=== PATIENT | male | born 1960 | race Two or more races ===

== ENCOUNTER 2020-10-20 17:49 | Inpatient (IN) | payer OTHER ==
[2020-10-20 19:09] LABS: BASO % 0.7 % (0-2.0); EOS % 2.5 % (0-4.5); HEMATOCRIT 40.6 % (35.4-49); HEMOGLOBIN 13.6 GM/dL (11.7-16.9); LYMPH % 23.9 % (8-40); MCH 27.8 pg (25.7-33.7); MCHC 33.4 g/dl (32.0-35.9); MEAN CELL VOLUME 83.3 fl (80-96); MEAN PLT VOLUME 8.5 fl (7.5-11.1); MONO % 9.3 % (3.8-10.2); NEUT % 63.6 % (42.8-82.8); PLATELET COUNT 146 10^3/uL (134-434); RBC 4.88 M/mm3 (4.00-5.60); RDW 14.3 % (11.9-15.9); WHITE BLOOD COUNT 7.5 K/mm3 (4.0-10.0)
[2020-10-20 19:32] LABS: ALBUMIN 3.3 g/dl (3.4-5.0); BLOOD UREA NITROGEN 24.8 mg/dL (7-18)
[2020-10-20 19:35] LABS: CREATININE 0.9 mg/dL (0.55-1.3)
[2020-10-20 19:37] LABS: BILIRUBIN,TOTAL 0.7 mg/dL (0.2-1); TOT PROT 7.6 g/dl (6.4-8.2)
[2020-10-20 20:31] LABS: CALCIUM 9.3 mg/dL (8.5-10.1)
[2020-10-20 20:32] LABS: ALBUMIN 3.4 g/dl (3.4-5.0); BLOOD UREA NITROGEN 25.2 mg/dL (7-18)
[2020-10-20 20:35] LABS: CREATININE 0.9 mg/dL (0.55-1.3)
[2020-10-20 20:37] LABS: BILIRUBIN,TOTAL 0.7 mg/dL (0.2-1); TOT PROT 7.4 g/dl (6.4-8.2)
[2020-10-20] MEDS ORDERED: DEXTROSE 5%-0.45% SALINE 1,000 ML IV SCH (20:45)
[2020-10-21 08:14] LABS: ALBUMIN 3.1 g/dl (3.4-5.0); BASO % 0.8 % (0-2.0); BLOOD UREA NITROGEN 19.8 mg/dL (7-18); CALCIUM 8.7 mg/dL (8.5-10.1); EOS % 4.6 % (0-4.5); HEMATOCRIT 44.3 % (35.4-49); HEMOGLOBIN 14.2 GM/dL (11.7-16.9); LYMPH % 36.9 % (8-40); MCH 27.1 pg (25.7-33.7); MEAN CELL VOLUME 84.8 fl (80-96); MEAN PLT VOLUME 9.3 fl (7.5-11.1); MONO % 6.9 % (3.8-10.2); NEUT % 50.8 % (42.8-82.8); PLATELET COUNT 153 10^3/uL (134-434); RBC 5.23 M/mm3 (4.00-5.60); RDW 14.4 % (11.9-15.9); WHITE BLOOD COUNT 5.4 K/mm3 (4.0-10.0)
[2020-10-21 08:18] LABS: CREATININE 0.7 mg/dL (0.55-1.3)
[2020-10-21 08:19] LABS: BILIRUBIN,TOTAL 0.9 mg/dL (0.2-1); TOT PROT 7.2 g/dl (6.4-8.2)
[2020-10-21 08:53] LABS: EPI CELLS 11 /uL (0-25.1); HYALINE CASTS 1 /uL (0-3.1); PH,URINE 6.5 (5.0-8.0); URINE APPEARANCE CLEAR; URINE BACTERIA 116 /uL (0-1359); URINE BILIRUBIN NEGATIVE (NEGATIVE); URINE COLOR DK YELLOW; URINE GLUCOSE (UA) NEGATIVE (NEGATIVE); URINE KETONE NEGATIVE (NEGATIVE); URINE LEUK ESTERASE 1+ (NEGATIVE); URINE NITRITE NEGATIVE (NEGATIVE); URINE PROTEIN NEGATIVE (NEGATIVE); URINE RBC 5 /uL (0-23.9); URINE WBC 12 /uL (0-25.8)
[2020-10-21] MEDS ORDERED: ACETAMINOPHEN 325 MG TABLET (FP) PO PRN (12:17)
[2020-10-21] MEDS ORDERED: QUEtiapine FUMARATE 200 MG TABLET PO ONE (13:00)
[2020-10-21] MEDS ORDERED: LITHIUM CARBONATE 300 MG CAPSULE PO ONE (13:15)
[2020-10-21] MEDS: HEPARIN NA (PORCINE) 5,000 UNITS/ML 1ML VIAL SQ SCH (21:36)
[2020-10-21] MEDS: LITHIUM CARBONATE 300 MG CAPSULE PO SCH (21:38)
[2020-10-21] MEDS: BUDESONIDE/FORMETEROL FUMARATE 160/4.5 mcg INHALER IH SCH (21:39)
[2020-10-21] MEDS: QUEtiapine FUMARATE 200 MG TABLET PO SCH (21:39)
[2020-10-22] MEDS: LEVOTHYROXINE NA 112 MCG TABLET (FP) PO SCH (06:00)
[2020-10-22] MEDS: BUDESONIDE/FORMETEROL FUMARATE 160/4.5 mcg INHALER IH SCH ×2 (10:45→21:16)
[2020-10-22] MEDS: HEPARIN NA (PORCINE) 5,000 UNITS/ML 1ML VIAL SQ SCH ×2 (10:45→21:16)
[2020-10-22] MEDS: QUEtiapine FUMARATE 200 MG TABLET PO SCH ×2 (10:46→21:16)
[2020-10-22] MEDS: LITHIUM CARBONATE 300 MG CAPSULE PO SCH ×2 (10:46→21:16)
[2020-10-22 14:07] VITALS: BMI 18.5
[2020-10-23] MEDS: LEVOTHYROXINE NA 112 MCG TABLET (FP) PO SCH ×2 (06:24→07:42)
[2020-10-23] MEDS ORDERED: PT OWN MED DRAWER 7, Y5N ONE ×2 (09:55→12:59)
[2020-10-23] MEDS: HEPARIN NA (PORCINE) 5,000 UNITS/ML 1ML VIAL SQ SCH (10:32)
[2020-10-23] MEDS: QUEtiapine FUMARATE 200 MG TABLET PO SCH (10:32)
[2020-10-23] MEDS: LITHIUM CARBONATE 300 MG CAPSULE PO SCH (10:32)
[2020-10-23] MEDS: BUDESONIDE/FORMETEROL FUMARATE 160/4.5 mcg INHALER IH SCH (10:33)
[2020-10-23 15:01] VITALS: BP 115/67; PULSE 77; TEMP 97.6
== END 2020-10-23 18:08 | DRG 56 ==
LOC: EDBD 17:49 → JER 17:49 → JERBED 20:40 → J7W 22:19
PROVIDERS: ADMIT Internal Medicine; ATTEND Internal Medicine
DX: G91.2 (Idiopathic) normal pressure hydrocephalus (principal); G93.41 Metabolic encephalopathy; F20.9 Schizophrenia, unspecified; F31.9 Bipolar disorder, unspecified; G20 Parkinson's disease; F02.80 Dementia in other diseases classified elsewhere, unspecified severity, without behavioral disturbance, psychotic disturbance, mood disturbance, and anxiety; J44.9 Chronic obstructive pulmonary disease, unspecified; E03.9 Hypothyroidism, unspecified; D64.9 Anemia, unspecified; E78.5 Hyperlipidemia, unspecified; R29.6 Repeated falls; G93.89 Other specified disorders of brain; S09.90XA Unspecified injury of head, initial encounter; W19.XXXA Unspecified fall, initial encounter; Y93.89 Activity, other specified; Y92.129 Unspecified place in nursing home as the place of occurrence of the external cause; Y99.8 Other external cause status
CPT/HCPCS: 36415; 70450-TC; 72125-TC; 80053; 80178; 81003; 84439; 84443; 85025; 87086; 93005; 93010; 97116-GP; 97162-GP; 99285-25; C9803; J1644; U0003; U0005

== ENCOUNTER 2021-01-10 15:52 | Emergency (ER) | payer OTHER ==
[2021-01-10 16:53] LABS: BASO % 1.1 % (0-2.0); EOS % 3.9 % (0-4.5); HEMATOCRIT 40.8 % (35.4-49); HEMOGLOBIN 13.7 GM/dL (11.7-16.9); LYMPH % 28.2 % (8-40); MCH 27.9 pg (25.7-33.7); MCHC 33.5 g/dl (32.0-35.9); MEAN CELL VOLUME 83.3 fl (80-96); MEAN PLT VOLUME 8.3 fl (7.5-11.1); MONO % 7.5 % (3.8-10.2); NEUT % 59.3 % (42.8-82.8); PLATELET COUNT 179 10^3/uL (134-434); RDW 14.3 % (11.9-15.9); RETICULOCYTES 0.72 % (0.5-1.5)
[2021-01-10 17:18] LABS: CALCIUM 8.5 mg/dL (8.5-10.1)
[2021-01-10 17:19] LABS: ALBUMIN 2.8 g/dl (3.4-5.0); BLOOD UREA NITROGEN 19.7 mg/dL (7-18)
[2021-01-10 17:22] LABS: INR 1.03 (0.83-1.09); PROTHROMBIN TIME (PATIENT) 12.4 SEC (9.7-13.0)
[2021-01-10 17:22] LABS: CREATININE 0.9 mg/dL (0.55-1.3)
[2021-01-10 17:23] LABS: TOT PROT 7.8 g/dl (6.4-8.2)
[2021-01-10 17:25] LABS: ACTIVATED PTT 30.2 SECONDS (25.2-36.5)
[2021-01-10 17:30] LABS: BILIRUBIN,TOTAL 0.5 mg/dL (0.2-1)
[2021-01-10 20:39] LABS: ANISOCYTOSIS 0; MACROCYTOSIS 0; PLATELET ESTIMATE NORMAL
[2021-01-10 21:53] VITALS: BP 122/86; PULSE 85; TEMP 98.3
== END 2021-01-10 22:02 ==
LOC: JER 15:52
DX: R19.5 Other fecal abnormalities (principal)
CPT/HCPCS: 36415; 80053; 82272; 85025; 85045; 85610; 85730; 86850; 86900; 86901; 93005; 93010; 99284-25

== ENCOUNTER 2021-07-09 17:53 | Inpatient (IN) | payer OTHER ==
[2021-07-09 18:33] VITALS: TEMP 96.6; BMI 20.3
[2021-07-09 20:37] LABS: INR 1.43 (0.83-1.09); PROTHROMBIN TIME (PATIENT) 16.5 SEC (9.7-13.0)
[2021-07-09 20:40] LABS: ACTIVATED PTT 29.1 SECONDS (25.2-36.5)
[2021-07-09 20:54] LABS: HEMATOCRIT 38.7 % (35.4-49); HEMOGLOBIN 12.7 GM/dL (11.7-16.9); MCH 25.7 pg (25.7-33.7); MCHC 32.8 g/dl (32.0-35.9); MEAN CELL VOLUME 78.3 fl (80-96); MEAN PLT VOLUME 7.7 fl (7.5-11.1); PLATELET COUNT 260 10^3/uL (134-434); RBC 4.94 M/mm3 (4.00-5.60); RDW 19.8 % (11.9-15.9); WHITE BLOOD COUNT 12.4 K/mm3 (4.0-10.0)
[2021-07-09 21:01] LABS: LACTIC ACID 4.4 mmol/L (0.4-2.0)
[2021-07-09 21:29] LABS: ALBUMIN 2.1 g/dl (3.4-5.0); CALCIUM 8.8 mg/dL (8.5-10.1)
[2021-07-09 21:30] LABS: BLOOD UREA NITROGEN 39.5 mg/dL (7-18)
[2021-07-09 22:22] LABS: EPI CELLS 1 /uL (0-25.1); HYALINE CASTS 6 /uL (0-3.1); URINE APPEARANCE CLOUDY; URINE BACTERIA 1077 /uL (0-1359); URINE BILIRUBIN 1+ (NEGATIVE); URINE COLOR DK YELLOW; URINE GLUCOSE (UA) NEGATIVE (NEGATIVE); URINE KETONE NEGATIVE (NEGATIVE); URINE LEUK ESTERASE 3+ (NEGATIVE); URINE NITRITE NEGATIVE (NEGATIVE); URINE PROTEIN 1+ (NEGATIVE); URINE RBC 429 /uL (0-23.9); URINE WBC 967 /uL (0-25.8)
[2021-07-09] MEDS ORDERED: CEFTRIAXONE 1 GM in DEXTROSE 5%-WATER - 100 ML IVPB ONE (22:47)
[2021-07-09] MEDS ORDERED: CEFTRIAXONE 1 GM/50 ML BAG ONE (22:53)
[2021-07-09] MEDS ORDERED: QUEtiapine FUMARATE 50 MG TABLET PO ONE (23:24)
[2021-07-09] MEDS ORDERED: QUEtiapine FUMARATE 25 MG TABLET ONE (23:32)
[2021-07-10] MEDS ORDERED: HALOPERIDOL LACTATE 5 MG/ML IM ONE (00:04)
[2021-07-10] MEDS ORDERED: HALOPERIDOL LACTATE 5 MG/ML ONE (00:06)
[2021-07-10] MEDS ORDERED: FUROSEMIDE 40 MG/4 ML INJECTABLE VIAL IVPUSH STA (01:52)
[2021-07-10] MEDS ORDERED: FUROSEMIDE 40 MG/4 ML INJECTABLE VIAL ONE (02:08)
[2021-07-10 07:00] VITALS: BP 148/93; PULSE 93
[2021-07-10 07:16] LABS: HEMATOCRIT 38.4 % (35.4-49); HEMOGLOBIN 12.4 GM/dL (11.7-16.9); MCH 25.1 pg (25.7-33.7); MCHC 32.3 g/dl (32.0-35.9); MEAN CELL VOLUME 77.6 fl (80-96); MEAN PLT VOLUME 7.6 fl (7.5-11.1); PLATELET COUNT 364 10^3/uL (134-434); RBC 4.94 M/mm3 (4.00-5.60); RDW 20.7 % (11.9-15.9); WHITE BLOOD COUNT 16.9 K/mm3 (4.0-10.0)
[2021-07-10 07:35] LABS: ALBUMIN 2.2 g/dl (3.4-5.0); BLOOD UREA NITROGEN 45.4 mg/dL (7-18); CALCIUM 9.3 mg/dL (8.5-10.1)
[2021-07-10 07:39] LABS: CREATININE 1.1 mg/dL (0.55-1.3)
[2021-07-10 07:40] LABS: BILIRUBIN,TOTAL 3.3 mg/dL (0.2-1); TOT PROT 8.2 g/dl (6.4-8.2)
[2021-07-10 09:43] LABS: ANISOCYTOSIS 0; HELMET CELLS 0; HOWELL-JOLLY BODIES 0; MACROCYTOSIS 0; OVALOCYTE 0; ROULEAU 0; SICKELED CELLS 0; TARGET CELLS 0; TEAR DROP CELLS 0; TOXIC GRANULATION 0
== END 2021-07-10 09:43 | disposition expired | DRG 435 ==
LOC: JER 17:53 → JERBED 22:32
PROVIDERS: ADMIT Hospitalist; ATTEND Internal Medicine
PROC: 5A12012 Performance of Cardiac Output, Single, Manual (ICD-10-PCS; principal; 2021-07-10)
DX: C22.9 Malignant neoplasm of liver, not specified as primary or secondary (principal); J96.01 Acute respiratory failure with hypoxia; K72.00 Acute and subacute hepatic failure without coma; R18.8 Other ascites; I46.9 Cardiac arrest, cause unspecified; K72.90 Hepatic failure, unspecified without coma
CPT/HCPCS: 36415; 71045-TC-FY; 74177-TC; 80053; 81003; 83605; 85025; 85610; 85730; 87040; 87086; 87186; 93005; 93010; 99285-25; C9803; Q9967; U0003; U0005